=== PATIENT | female | born 1965 | race Two or more races ===

== ENCOUNTER 2018-11-05 12:54 | Emergency (ER) | payer OTHER ==
[2018-11-05] MEDS ORDERED: ONDANSETRON 4 MG/2 ML VIAL IVP ONE (13:34)
[2018-11-05] MEDS ORDERED: DIAZEPAM 10 MG/2 ML SYR IVP ONE (13:34)
[2018-11-05] MEDS ORDERED: NS 1,000 ML IV ONE (13:34)
[2018-11-05] MEDS ORDERED: MECLIZINE HCL 25 MG TAB PO ONE (13:35)
--- NOTE | 2018-11-05 13:37 | EDPHY ---
H & P Stated Complaint: vertigo/positional dizziness started 4 days ago Time Seen by Provider: 11/05/18 13:06 HPI/ROS: 53 yo F presents c/o room spinning and dizziness with nausea for the last 2-3 days, prior to that she had a cold/flu like illness for approx one week. No headache, no fever or chills. No ear pain, still with some congestion. Review of systems As per HPI-recent uri General no fever no chills no weakness HEENT no eye pain no eye discharge. No eye redness, no sore throat Respiratory no cough, no shortness of breath Cardiac no chest pain, no peripheral edema GI no abdominal pain, no diarrhea, no constipation, no nausea, no vomiting no flank pain, no hematuria, no dysuria Musculoskeletal no myalgias, no joint pain Heme no easy bruising, no easy bleeding Endo no polyuria, no polydipsia Skin no rashes, no pruritus Neuro no syncope, pos dizziness and pos room spinning Psych is no suicidal ideation, no homicidal ideation Source: Patient, Family Exam Limitations: No limitations - Personal History LMP (Females 10-55): Post Menopausal - Medical/Surgical History Hx Asthma: No Hx Chronic Respiratory Disease: No Hx Diabetes: No Hx Cardiac Disease: No Hx Renal Disease: No Hx Cirrhosis: No Hx Alcoholism: No Hx HIV/AIDS: No Hx Splenectomy or Spleen Trauma: No Other PMH: vertigo, gall bladder - Social History Smoking Status: Former smoker Alcohol Use: None Drug Use: None - Physical Exam Exam: 53 yo F HEENT atraumatic normocephalic, extraocular muscles intact, anicteric mild nystagmus to the left tms clear, fluid present behing left , no erythema, no perforation Oropharynx negative for erythema negative exudate, tolerating her own secretions Neck supple no meningismus Lungs clear to auscultation bilaterally Heart regular rate and rhythm without murmur rub or gallop Abdomen nondistended normoactive bowel sounds soft nontender Back no CVA tenderness, no step-offs, no spinal tenderness Extremities no cyanosis clubbing or edema Neuro alert and oriented, cn intact, motor and sensory intact, no drift, finger to nose and heel to sheehan intact Constitutional: Initial Vital Signs Temperature (C) 36.5 C 11/05/18 13:03 Heart Rate 71 11/05/18 13:03 Respiratory Rate 18 11/05/18 13:03 Blood Pressure 165/88 H 11/05/18 13:03 O2 Sat (%) 95 11/05/18 13:03 O2 Delivery Mode Room Air Allergies/Adverse Reactions: No Known Allergies Allergy (Unverified 11/05/18 13:03) Home Medications: Medication Instructions Recorded Meclizine HCl [Meclizine HCl 25 mg 25 mg PO TID PRN #30 tab 11/05/18 (RX,OTC)] Medical Decision Making ED Course/Re-evaluation: pt seen and evaluated for room spinning for 2-3 days following a cold. IV established, labs drawn pt given iv fluids normal saline, ondansetron , diazepam 2.5 mg ivp and after nausea settled down given meclizine 25 mg po pt feeling markedly improved, nystagmus extinguished Imp Labrynthitis Plan Rest, drink plenty of fluids, Meclizine 25 mg po Discussed modified eppley maneuver. Differential Diagnosis: Differential diagnosis considered but not limited to: ear infection, vertigo, bpv, menieres , labrynthitis - Data Points Medications Given: Discontinued Medications Acetaminophen (Tylenol) 650 mg PO EDNOW ONE Stop: 11/05/18 14:56 Last Admin: 11/05/18 15:11 Dose: 650 mg Diazepam (Valium) 2.5 mg IVP EDNOW ONE Stop: 11/05/18 13:35 Last Admin: 11/05/18 13:59 Dose: 2.5 mg Sodium Chloride (Ns) 1,000 mls @ 0 mls/hr IV ONCE ONE PRN Reason: Wide Open Stop: 11/05/18 13:35 Last Admin: 11/05/18 13:55 Dose: 1,000 mls Meclizine HCl (Meclizine Hcl) 25 mg PO EDNOW ONE Stop: 11/05/18 13:36 Last Admin: 11/05/18 13:59 Dose: 25 mg Ondansetron HCl (Zofran) 4 mg IVP EDNOW ONE Stop: 11/05/18 13:35 Last Admin: 11/05/18 13:55 Dose: 4 mg Departure - Departure Disposition: Home, Routine, Self-Care Clinical Impression: Acute labyrinthitis Condition: Good Instructions: Labyrinthitis (ED), Vertigo (ED) Additional Instructions: You tube videos to check out 1) Dr Michelle Adorno Half Somersault Maneuver 2) Half Somersault Nameuver to treat BPPV Vertigo 3) Olman Maneuver to treat BPPV Vertigo Referrals: NONE *PRIMARY CARE P,. [Primary Care Provider] - As per Instructions [facility] [Provider Group] - As per Instructions Stand Alone Forms: Work Excuse Prescriptions: Meclizine HCl [Meclizine HCl 25 mg (RX,OTC)] 25 mg PO TID PRN #30 tab PRN Reason: Dizziness
[2018-11-05] MEDS ORDERED: DIAZEPAM 5 MG/ML 1 ML SYR ONE (13:51)
[2018-11-05] MEDS ORDERED: ACETAMINOPHEN 325 MG TAB PO ONE (14:55)
[2018-11-05 15:22] VITALS: BP 138/72
== END 2018-11-05 15:15 | disposition home or self-care (01) ==
LOC: CED 12:54
DX: H83.02 Labyrinthitis, left ear (principal); Z87.891 Personal history of nicotine dependence
CPT/HCPCS: 96361-ER; 96374-ER; 96375-ER; 99284-ER; J2405; J3360

== ENCOUNTER 2019-01-09 04:26 | Emergency (ER) | payer OTHER ==
[2019-01-09] MEDS ORDERED: ONDANSETRON 4 MG/2 ML VIAL ONE (04:44)
[2019-01-09] MEDS ORDERED: NS 1,000 ML IV ONE ×3 (04:47→06:54)
[2019-01-09] MEDS ORDERED: ONDANSETRON 4 MG/2 ML VIAL IVP ONE (04:47)
--- NOTE | 2019-01-09 05:52 | CPEKG ---
Test Reason : OPEN Blood Pressure : / mmHG Vent. Rate : 076 BPM Atrial Rate : 075 BPM P-R Int : 173 ms QRS Dur : 102 ms QT Int : 415 ms P-R-T Axes : 055 063 -56 degrees QTc Int : 467 ms Sinus rhythm Ventricular premature complex Borderline T abnormalities, inferior leads Confirmed by Viviane Hughes ([id number]) on 01/09/2019 5:51:29 AM Referred By: Viviane Hughes Confirmed By:Viviane Hughes
--- NOTE | 2019-01-09 05:57 | EDPHY ---
Addendum entered and electronically signed by Nav Yu MD 08:15: 8:15 p.m., the patient was re-evaluated, she is resting comfortably at this time. She has been drinking gingerale. She drank her GI cocktail without issue. She states that she is feeling better. She denies any significant abdominal pain or discomfort at this time. No chest pain. No shortness of breath. Repeat abdominal exam she is soft, nontender nondistended. I discussed the results of her CT scan and blood work with her and her . This was all thoroughly explained. All of their questions were answered. She feels comfortable going home with her at this time and is requesting discharge. Follow-up and return to emergency department precautions were reviewed with the 2 of them. I explained I would prescribe some Zofran for nausea. She was discharged home in good condition with her . I feel that pancreatitis, biliary obstruction, bowel obstruction/vulvar, perforated peptic ulcer, appendicitis, acute coronary syndrome, pulmonary embolism, aortic dissection are unlikely. Addendum entered and electronically signed by Nav Yu MD 08:09: I took over care of this patient at 7:00 a.m.. Please see H and P by Dr. Hughes for further details. We are waiting the results of the CT abdomen and pelvis. Shortly after I assumed care the patient was given a GI cocktail. CT abdomen and IV pelvis contrast enhanced: Significant for some small bowel loops that are fluid filled suggestive of an enteritis. No evidence of obstruction. The appendix is well visualized and is normal. The pancreas is well visualized and is normal. The right upper quadrant anatomy is unremarkable. This is otherwise a negative study. Results were discussed with staff radiologist Dr. Howard Pike. Original Note: H & P Time Seen by Provider: 01/09/19 04:51 HPI/ROS: CHIEF COMPLAINT: Nausea, vomiting, abdominal pain. HISTORY OF PRESENT ILLNESS: Patient states that she was feeling well yesterday until about 8:00 p.m.. She states that she had eaten for dinner leftover [employer] pizza and some very juice. About 1 hr after eating she developed abdominal pain which she describes as crampy, intermittent, in the epigastric region. About an hour after onset of pain she developed nausea and vomiting. She states she had 4-6 episodes of nausea and vomiting including on arrival to the emergency department. The pain has been persistent worse around vomiting episodes to level of 8 or 9 of 10. In between vomiting episodes pain is about 3 /10, currently she states she has 0 pain. She denies any fevers or chills. She has had no chest pain or shortness of breath. She did have a flu-like illness around [place] time. She was started on atorvastatin, for high cholesterol, and Lamisil, for toenail fungal infection, on December 09. She also had meclizine for vertigo in October but is no longer taking that. She took ibuprofen at 4:00 a.m. This morning. No other recent illnesses. She states it does feel like when she had cholecystitis 4-5 years ago. REVIEW OF SYSTEMS: Constitutional: No fever, no chills. Eyes: No discharge. ENT: No sore throat. Cardiovascular: No chest pain, no palpitations. No dyspnea on exertion no decreased exercise tolerance. Respiratory: No cough, no shortness of breath. Gastrointestinal: Per HPI, no diarrhea or constipation Genitourinary: No dysuria. Musculoskeletal: No back pain. No muscle aches. Skin: No rashes. Neurological: No headache. General Appearance: Alert, no distress. Pale. Eyes: Pupils equal and round no pallor or injection. ENT, Mouth: Mucous membranes moist. Respiratory: There are no retractions, lungs are clear to auscultation. Cardiovascular: Regular rate and rhythm. Gastrointestinal: Abdomen is soft, bowel sounds hypoactive, mild epigastric tenderness to palpation. No distention, guarding, peritoneal signs. Neurological: Awake, alert, cranial nerves intact, no focal deficits. Skin: Warm and dry, no rashes. Musculoskeletal: Neck is supple nontender. Extremities are symmetrical, full range of motion, no edema. Psychiatric: Patient is oriented X 3, there is no agitation. Medical/surgical history: High cholesterol, vertigo, cholecystectomy. Social history: No tobacco, EtOH, drugs Smoking Status: Former smoker Constitutional: Initial Vital Signs Temperature (C) 36.6 C 01/09/19 04:38 Heart Rate 82 01/09/19 04:38 Respiratory Rate 20 01/09/19 04:38 Blood Pressure 154/89 H 01/09/19 04:38 O2 Sat (%) 98 01/09/19 04:38 O2 Delivery Mode Room Air Allergies/Adverse Reactions: No Known Allergies Allergy (Unverified 11/05/18 13:03) Home Medications: Medication Instructions Recorded Lipitor 01/09/19 Ondansetron Odt [Zofran Odt 4 mg 4 mg PO Q4PRN PRN #10 tab 01/09/19 (*)] Medical Decision Making - Diagnostics EKG Interpretation: EKG shows normal sinus rhythm with a rate of 76. Normal axis, intervals. PVCs noted. Diffuse, nonspecific T-wave abnormalities most notable in inferior leads. No old for comparison. No ST T-wave elevation. Impression abnormal, nonspecific EKG. Imaging Results: Imaging Impressions Abdomen CT 01/09/19 06:54 Impression: 1. Dysmotile small bowel pattern suggestive of gastroenteritis. No evidence of small bowel obstruction. 2. No free fluid, abscess, or pneumoperitoneum. 3. Cholecystectomy. No biliary dilation or evidence of common bile duct stone. 3. Normal pancreas. No evidence of acute or chronic pancreatitis. Findings discussed with emergency department physician, Nav Yu MD on January 09, 2019 at 8:11 a.m. ED Course/Re-evaluation: 6:00 a.m. Re-evaluation shows pain chin improved, no complaints of pain, color better. Abdomen is soft, nontender. Second L IV fluid ordered. Reviewed labs - mildly elevated glucose, elevated white blood cell count. 6:50 a.m. lipase and CK within normal limits. Re-evaluation of patient after attempting p.o. Challenge. Patient states with small amount of oral fluids pain returned, not severe, 3/10, no return of nausea or vomiting. CT scan ordered. Discussed with the oncoming physician Dr. Yu. Differential Diagnosis: Differential diagnosis includes but is not limited to gastroenteritis, pancreatitis, retained stone, acute coronary syndrome, bowel obstruction. Unlikely retained stone after nearly 5 years since surgery. No evidence of pancreatitis, acute coronary syndrome. As pain returned with p.o. challenge will get CT scan to evaluate for possible obstruction or other more serious GI abnormality. - Data Points Laboratory Results: 01/09/19 01/09/19 01/09/19 05:34 05:20 04:43 POC Sodium 143 mEq/L mEq/L (135-145) POC Potassium 3.7 mEq/L mEq/L (3.3-5.0) POC Chloride 108.0 mEq/L mEq/L (97-110) POC Total CO2 24 mEq/L mEq/L (22-31) POC BUN 20 mg/dL mg/dL (7-23) POC Creatinine 0.5 mg/dL L mg/dL (0.6-1.0) POC Glucose 183 mg/dL H mg/dL (70-100) POC Calcium 10.8 mg/dL H mg/dL (8.5-10.4) POC Total Bilirubin 1.0 mg/dL mg/dL (0.1-1.4) POC AST 24 IU/L IU/L (14-46) POC ALT 22 IU/L IU/L (9-52) POC Alk Phosphatase 112 IU/L IU/L (38-126) Creatine Kinase 96 IU/L IU/L (0-156) POC Troponin I 0.00 ng/mL ng/mL (0.00-0.08) POC Total Protein 8.4 g/dL H g/dL (6.3-8.2) POC Albumin 4.5 g/dL g/dL (3.5-5.0) Lipase 53 IU/L IU/L (23-300) Medications Given: Discontinued Medications Al Hydroxide/Mg Hydroxide (Maalox Susp) 30 ml PO ONCE ONE Stop: 01/09/19 07:03 Last Admin: 01/09/19 07:08 Dose: 30 ml Hyoscyamine Sulfate (Levsin, Hyomax-Sl) 0.25 mg PO ONCE ONE Stop: 01/09/19 07:03 Last Admin: 01/09/19 07:09 Dose: 0.25 mg Sodium Chloride (Ns) 1,000 mls @ 0 mls/hr IV ONCE ONE PRN Reason: Wide Open Stop: 01/09/19 04:48 Last Admin: 01/09/19 04:49 Dose: 1,000 mls Sodium Chloride (Ns) 1,000 mls @ 0 mls/hr IV ONCE ONE; Wide Open PRN Reason: Protocol Stop: 01/09/19 06:04 Last Admin: 01/09/19 06:06 Dose: 1,000 mls Sodium Chloride (Ns) 1,000 mls @ 0 mls/hr IV EDNOW ONE; Wide Open PRN Reason: Protocol Stop: 01/09/19 06:55 Last Admin: 01/09/19 07:01 Dose: 1,000 mls Lidocaine (Lidocaine 2% Viscous) 15 ml PO ONCE ONE Stop: 01/09/19 07:03 Last Admin: 01/09/19 07:08 Dose: 15 ml Ondansetron HCl (Zofran) 4 mg IVP EDNOW ONE Stop: 01/09/19 04:48 Last Admin: 01/09/19 04:49 Dose: 4 mg Point of Care Test Results: CBC CBC Collection Date 01/09/19 CBC Collection Time 04:46 WBC 14.59 RBC 5.36 HGB 14.4 HCT 42.8 PLT 341 Neut # 11.95 Neut 81.9 LYMPH # 2.06 LYMPH 14.1 MCV 79.9 Chemistry 01/09/19 01/09/19 05:34 05:20 POC Sodium 143 mEq/L mEq/L (135-145) POC Potassium 3.7 mEq/L mEq/L (3.3-5.0) POC Chloride 108.0 mEq/L mEq/L (97-110) POC Total CO2 24 mEq/L mEq/L (22-31) POC BUN 20 mg/dL mg/dL (7-23) POC Creatinine 0.5 mg/dL L mg/dL (0.6-1.0) POC Glucose 183 mg/dL H mg/dL (70-100) POC Calcium 10.8 mg/dL H mg/dL (8.5-10.4) POC Total Bilirubin 1.0 mg/dL mg/dL (0.1-1.4) POC AST 24 IU/L IU/L (14-46) POC ALT 22 IU/L IU/L (9-52) POC Alk Phosphatase 112 IU/L IU/L (38-126) POC Troponin I 0.00 ng/mL ng/mL (0.00-0.08) POC Total Protein 8.4 g/dL H g/dL (6.3-8.2) POC Albumin 4.5 g/dL g/dL (3.5-5.0) Departure - Departure Disposition: Home, Routine, Self-Care Clinical Impression: Upper abdominal pain, Nausea and vomiting Condition: Good Instructions: Acute Nausea and Vomiting (ED), Acute Abdominal Pain (ED) Additional Instructions: Read and follow provided instructions. Follow-up with your primary care physician as discussed on Friday for re- evaluation. Take medication as prescribed for nausea. Most important, return to the emergency department for worsening symptoms, worsening abdominal pain, vomiting and inability to keep fluids down despite medication, blood in your stool, black stool or other serious concerns. Referrals: Patient,NotPresent [Primary Care Provider] - As per Instructions Stand Alone Forms: Parent/Guardian Work Excuse, Work Excuse Prescriptions: Ondansetron Odt [Zofran Odt 4 mg (*)] 4 mg PO Q4PRN PRN #10 tab PRN Reason: For Nausea & Vomiting
[2019-01-09 06:19] LABS: CREATINE KINASE 96 IU/L (0-156)
[2019-01-09] MEDS ORDERED: HYOSCYAMINE SULFATE 0.125 MG TAB PO ONE (07:02)
[2019-01-09] MEDS ORDERED: LIDOCAINE 2% VISCOUS 15 ML UDCUP PO ONE (07:02)
[2019-01-09] MEDS ORDERED: MAG HYDROX/AL HYDROX/SIMETH 30 ML UDCUP PO ONE (07:02)
[2019-01-09] MEDS ORDERED: IOPAMIDOL (ISOVUE-300) 100 ML BTL ONE (07:13)
[2019-01-09 08:09] VITALS: BP 153/75
--- NOTE | 2019-01-09 08:19 | EDPHY ---
H & P Time Seen by Provider: 01/09/19 04:51 Smoking Status: Former smoker Constitutional: Initial Vital Signs Temperature (C) 36.6 C 01/09/19 04:38 Heart Rate 82 01/09/19 04:38 Respiratory Rate 20 01/09/19 04:38 Blood Pressure 154/89 H 01/09/19 04:38 O2 Sat (%) 98 01/09/19 04:38 O2 Delivery Mode Room Air Allergies/Adverse Reactions: No Known Allergies Allergy (Unverified 11/05/18 13:03) Home Medications: Medication Instructions Recorded Lipitor 01/09/19 Ondansetron Odt [Zofran Odt 4 mg 4 mg PO Q4PRN PRN #10 tab 01/09/19 (*)] Medical Decision Making - Data Points Laboratory Results: 01/09/19 01/09/19 01/09/19 05:34 05:20 04:43 POC Sodium 143 mEq/L mEq/L (135-145) POC Potassium 3.7 mEq/L mEq/L (3.3-5.0) POC Chloride 108.0 mEq/L mEq/L (97-110) POC Total CO2 24 mEq/L mEq/L (22-31) POC BUN 20 mg/dL mg/dL (7-23) POC Creatinine 0.5 mg/dL L mg/dL (0.6-1.0) POC Glucose 183 mg/dL H mg/dL (70-100) POC Calcium 10.8 mg/dL H mg/dL (8.5-10.4) POC Total Bilirubin 1.0 mg/dL mg/dL (0.1-1.4) POC AST 24 IU/L IU/L (14-46) POC ALT 22 IU/L IU/L (9-52) POC Alk Phosphatase 112 IU/L IU/L (38-126) Creatine Kinase 96 IU/L IU/L (0-156) POC Troponin I 0.00 ng/mL ng/mL (0.00-0.08) POC Total Protein 8.4 g/dL H g/dL (6.3-8.2) POC Albumin 4.5 g/dL g/dL (3.5-5.0) Lipase 53 IU/L IU/L (23-300) Medications Given: Discontinued Medications Al Hydroxide/Mg Hydroxide (Maalox Susp) 30 ml PO ONCE ONE Stop: 01/09/19 07:03 Last Admin: 01/09/19 07:08 Dose: 30 ml Hyoscyamine Sulfate (Levsin, Hyomax-Sl) 0.25 mg PO ONCE ONE Stop: 01/09/19 07:03 Last Admin: 01/09/19 07:09 Dose: 0.25 mg Sodium Chloride (Ns) 1,000 mls @ 0 mls/hr IV ONCE ONE PRN Reason: Wide Open Stop: 01/09/19 04:48 Last Admin: 01/09/19 04:49 Dose: 1,000 mls Sodium Chloride (Ns) 1,000 mls @ 0 mls/hr IV ONCE ONE; Wide Open PRN Reason: Protocol Stop: 01/09/19 06:04 Last Admin: 01/09/19 06:06 Dose: 1,000 mls Sodium Chloride (Ns) 1,000 mls @ 0 mls/hr IV EDNOW ONE; Wide Open PRN Reason: Protocol Stop: 01/09/19 06:55 Last Admin: 01/09/19 07:01 Dose: 1,000 mls Lidocaine (Lidocaine 2% Viscous) 15 ml PO ONCE ONE Stop: 01/09/19 07:03 Last Admin: 01/09/19 07:08 Dose: 15 ml Ondansetron HCl (Zofran) 4 mg IVP EDNOW ONE Stop: 01/09/19 04:48 Last Admin: 01/09/19 04:49 Dose: 4 mg Point of Care Test Results: CBC CBC Collection Date 01/09/19 CBC Collection Time 04:46 WBC 14.59 RBC 5.36 HGB 14.4 HCT 42.8 PLT 341 Neut # 11.95 Neut 81.9 LYMPH # 2.06 LYMPH 14.1 MCV 79.9 Chemistry 01/09/19 01/09/19 05:34 05:20 POC Sodium 143 mEq/L mEq/L (135-145) POC Potassium 3.7 mEq/L mEq/L (3.3-5.0) POC Chloride 108.0 mEq/L mEq/L (97-110) POC Total CO2 24 mEq/L mEq/L (22-31) POC BUN 20 mg/dL mg/dL (7-23) POC Creatinine 0.5 mg/dL L mg/dL (0.6-1.0) POC Glucose 183 mg/dL H mg/dL (70-100) POC Calcium 10.8 mg/dL H mg/dL (8.5-10.4) POC Total Bilirubin 1.0 mg/dL mg/dL (0.1-1.4) POC AST 24 IU/L IU/L (14-46) POC ALT 22 IU/L IU/L (9-52) POC Alk Phosphatase 112 IU/L IU/L (38-126) POC Troponin I 0.00 ng/mL ng/mL (0.00-0.08) POC Total Protein 8.4 g/dL H g/dL (6.3-8.2) POC Albumin 4.5 g/dL g/dL (3.5-5.0) Departure - Departure Disposition: Home, Routine, Self-Care Clinical Impression: Upper abdominal pain, Nausea and vomiting Condition: Good Instructions: Acute Abdominal Pain (ED), Acute Nausea and Vomiting (ED) Additional Instructions: Read and follow provided instructions. Follow-up with your primary care physician as discussed on Friday for re- evaluation. Take medication as prescribed for nausea. Most important, return to the emergency department for worsening symptoms, worsening abdominal pain, vomiting and inability to keep fluids down despite medication, blood in your stool, black stool or other serious concerns. Referrals: Patient,NotPresent [Primary Care Provider] - As per Instructions Stand Alone Forms: Parent/Guardian Work Excuse, Work Excuse Prescriptions: Ondansetron Odt [Zofran Odt 4 mg (*)] 4 mg PO Q4PRN PRN #10 tab PRN Reason: For Nausea & Vomiting
== END 2019-01-09 08:30 | disposition home or self-care (01) ==
LOC: CED 04:26
DX: R10.10 Upper abdominal pain, unspecified (principal); R11.2 Nausea with vomiting, unspecified; E86.9 Volume depletion, unspecified
CPT/HCPCS: 74177-PO; 80053-ER; 84484-ER; 96361-ER; 96374-ER; J2405; Q9967

== ENCOUNTER 2019-01-29 10:08 | Emergency (ER) | payer OTHER ==
--- NOTE | 2019-01-29 10:28 | EDPHY ---
H & P Stated Complaint: Dizziness since Friday, N/V, blurry vision. Time Seen by Provider: 01/29/19 10:28 - Personal History Current Tetanus Diphtheria and Acellular Pertussis (TDAP): Yes - Medical/Surgical History Hx Asthma: No Hx Chronic Respiratory Disease: No Hx Diabetes: No Hx Cardiac Disease: No Hx Renal Disease: No Hx Cirrhosis: No Hx Alcoholism: No Hx HIV/AIDS: No Hx Splenectomy or Spleen Trauma: No Other PMH: vertigo, gallbladder, toe fungus. - Social History Smoking Status: Former smoker Constitutional: Initial Vital Signs Temperature (C) 36.7 C 01/29/19 10:10 Heart Rate 67 01/29/19 10:10 Respiratory Rate 18 01/29/19 10:10 Blood Pressure 200/95 H 01/29/19 10:10 O2 Sat (%) 96 01/29/19 10:10 O2 Delivery Mode Room Air Allergies/Adverse Reactions: No Known Allergies Allergy (Unverified 11/05/18 13:03) Home Medications: Medication Instructions Recorded Lipitor 01/09/19 Ondansetron Odt [Zofran Odt 4 mg 4 mg PO Q4PRN PRN #10 tab 01/09/19 (*)] Meclizine HCl 01/29/19 Medical Decision Making ED Course/Re-evaluation: CHIEF COMPLAINT: Dizziness HISTORY OF PRESENT ILLNESS: The patient is a 53 y/o female with a history of peripheral vertigo complaining of dizziness, nausea, and vomiting onset Friday, 4 days ago. The patient tried doing Olman maneuvers and taking Meclizine without relief of symptoms. She presented to her PCP who advised that she present to a neurologist. However, the neurologist was unable to see the patient until 1:00pm. Her symptoms continued to worsen, so she decided to present to the emergency department. Her symptoms usually improve within 24 hours of onset when she takes medications and performs the Olman Maneuvers. Her symptoms worsen when she moves her head. She last took Meclizine at 22:00 last night, 12 hours ago. No fever, headache, body aches, chest pain, heart palpitations, shortness of breath, cough, abdominal pain, urinary or bowel complaints, numbness, paresthesias. A bridge engineer was used to communicate with the patient REVIEW OF SYSTEMS: A comprehensive 10 system review of systems is otherwise negative aside from elements mentioned in the history of present illness and medical decision making. PHYSICAL EXAM: HR, BP, O2 Sat, RR. Temp noted General Appearance: Alert, well hydrated, appropriate, and non-toxic appearing. Head: Atraumatic without scalp tenderness or obvious injury Eyes: Pupils equal, round, reactive to light and accommodation, EOMI, no trauma , no injection. Ears: Clear bilaterally, no perforation, normal landmarks Nose: Atraumatic, no rhinorrhea, clear. Throat: There is no erythema or exudates, no lesions, normal tonsils, mucus membranes moist. Neck: Supple, 2+ carotid upstroke, nontender, no lymphadenopathy. Respiratory: No retractions, no distress, no wheezes, and no accessory muscle use. Lungs are clear to auscultation bilaterally. Cardiovascular: Regular rate and rhythm, no murmurs, rubs, or gallops. Bilateral carotid, radial, dorsalis pedis, and posterior tibial pulses intact. Good capillary refill all extremities. Gastrointestinal: Abdomen is soft, nontender, non-distended, no masses, no rebound, no guarding, no peritoneal signs. Musculoskeletal: Normal active ROM of all extremities, atraumatic. Neurological: Alert, appropriate, and interactive. Worsening symptoms when moving head, improving symptoms when sitting still. The patient has normal DTRs and non-focal cranial nerves, motor, sensory, and cerebellar exam. Skin: No rashes, good turgor, no nodules on palpation. Past medical history: Vertigo, toe fungus. Past surgical history: Cholecystectomy Family history: Denies Social history: Lives in [place], , employed DIAGNOSTICS/PROCEDURES/CRITICAL CARE TIME: Not indicated. DIFFERENTIAL DIAGNOSIS: The differential diagnosis for the patient's dizziness included but was not limited to peripheral and central causes of vertigo, orthostatic causes including dehydration, cardiogenic and neurogenic causes, and blood loss. MEDICAL DECISION MAKING: The patient is a 53 y/o female with a history of peripheral vertigo presenting with dizziness, nausea, and vomiting onset Friday, 4 days ago. The patient tried doing Olman maneuvers and taking Meclizine without relief of symptoms. Her symptoms worsen when she moves her head and improve when she sits still. She last took Meclizine at 22:00 last night, 12 hours ago. 25mg PO Meclizine and 1 mg PO Ativan administered. I will also page [facility] to see if they can see this patient in the office for Olman maneuvers. [id number]: Adelina Ac ENT PA, can see this patient right now in the office. Patient will be sent to [facility] immediately. Return precautions provided; patient is comfortable with this plan. - Data Points Medications Given: Discontinued Medications Lorazepam (Ativan) 1 mg PO EDNOW ONE Stop: 01/29/19 10:35 Last Admin: 01/29/19 10:39 Dose: 1 mg Meclizine HCl (Meclizine Hcl) 25 mg PO EDNOW ONE Stop: 01/29/19 10:35 Last Admin: 01/29/19 10:39 Dose: 25 mg Departure - Departure Disposition: Home, Routine, Self-Care Clinical Impression: Peripheral vertigo Qualifiers: Laterality: unspecified laterality Qualified Code(s): H81.399 - Other peripheral vertigo, unspecified ear Condition: Good Instructions: Vertigo (ED), Benign Paroxysmal Positional Vertigo (ED) Additional Instructions: 1. Go directly to Adelina Ac's office at [facility] for Olman maneuvers. 2. Return to the emergency department immediately for headache, numbness, weakness, severe vertigo, neck pain, inability to tolerate fluids by mouth or other worsening of condition. Referrals: Adelina Ac PA [Physician Digital Media Manager] - As per Instructions Print Language: Japanese Report Scribed for: Ky Lowe Report Scribed by: Adrianne Elmore Date of Report: 01/29/19 Time of Report: 11:00
[2019-01-29] MEDS ORDERED: MECLIZINE HCL 25 MG TAB PO ONE (10:34)
[2019-01-29] MEDS ORDERED: LORazepam 1 MG TAB PO ONE (10:34)
[2019-01-29 11:06] VITALS: BP 172/79
== END 2019-01-29 11:04 | disposition home or self-care (01) ==
DX: H81.399 Other peripheral vertigo, unspecified ear (principal)